=== PATIENT | male | born 1980 | race Caucasian/White ===

== ENCOUNTER 2017-01-23 07:52 | Inpatient (IN) | payer BC ==
[~2017-01-23] VITALS: Ht 175.3 cm; Wt 209.0 kg
[~2017-01-23 07:52] MED LIST: BYSTOLIC10 MG PO; DAILY MULTIPLE1 EACH PO; DEPO-TESTOS100 MG/ML IM
[2017-01-23 08:53] VITALS: BP 134/86
[2017-01-23 09:05] VITALS: BP 134/86
[2017-01-23 09:48] LABS: POINT-OF-CARE METER ID UU14174212
[2017-01-23 13:00] VITALS: BP 134/69
[2017-01-23 14:55] VITALS: BP 136/71
[2017-01-23 19:51] VITALS: BP 133/63
[2017-01-23 23:30] VITALS: BP 123/59
[2017-01-24 03:34] VITALS: BP 124/60
[2017-01-24 06:57] LABS: HEMATOCRIT 41.9 % (38.0-50.0); MCH 26.8 PG (29.0-34.0); MCHC 31.5 G/DL (30.0-36.0); MEAN PLAT.VOLUME 12.7 uM^3 (9.0-12.4); PLATELET COUNT 207 K/uL (156-360); RBC DIS.WIDTH-CV 14.2 % (11.8-14.6); RBC DIS.WIDTH-SD 43.6 % (39-53); RED BLOOD COUNT 4.93 M/uL (4.00-5.50); WHITE BLOOD COUNT 12.1 K/uL (4.1-10.2)
[2017-01-24 07:20] LABS: CHLORIDE 102 MEQ/L (99-109); GFR ESTIMATE (CALCULATED) > 59 mL/min/; GLUCOSE 105 mg/dL (70-99); MAGNESIUM 1.7 mg/dl (1.3-2.7); POTASSIUM 4.5 MEQ/L (3.7-5.4); SAMPLE HEMOLYSIS CHECK 0; SAMPLE ICTERIC CHECK 0; SAMPLE LIPEMIA CHECK 0; SODIUM 138 MEQ/L (136-147); UREA NITROGEN (BUN) 7 mg/dL (9-23)
[2017-01-24 07:21] LABS: ANION GAP 11 MEQ/L (2-14)
[2017-01-24 07:48] VITALS: BP 130/66
[2017-01-24] MEDS ORDERED: HYDROCODON-ACE1 EAC7 PO (08:23)
[2017-01-24] MEDS ORDERED: LOVENOX60 MG/0.6 SC (08:25)
[2017-01-24 11:53] VITALS: BP 130/67
== END 2017-01-24 14:01 | disposition home or self-care (01) | DRG 621 ==
LOC: 2SOUTH 07:52 → 2EASTP 13:03 → 2SOUTH 14:20 → 2EASTP 01-24 14:01
PROVIDERS: Surgery
PROC: 0DB64Z3 Excision of Stomach, Percutaneous Endoscopic Approach, Vertical (ICD-10-PCS; principal; 2017-01-23)
DX: E66.01 Morbid (severe) obesity due to excess calories (principal); Z68.45 Body mass index [BMI] 70 or greater, adult; I10 Essential (primary) hypertension; J45.909 Unspecified asthma, uncomplicated
CPT/HCPCS: 80048; 82948; 83735; 84100; 85027; C9113; J0330; J0690; J1100; J1170; J1644; J1650; J1815; J2250; J2405; J2550; J2710; J2765; J3010; J3480; J7120; S0020